=== PATIENT | male | born 1985 | race Caucasian/White ===

== ENCOUNTER 2017-01-21 21:23 | Emergency (ER) | payer SELFPAY ==
[2017-01-21 21:37] VITALS: BP 123/83; BMI 27.7
--- NOTE | 2017-01-21 22:46 | DR.GENAD ---
HPI - PCP Primary Care Physician: DR. Gwen STOVALL - Complaint/Symptoms Chief Complaint Doctors Comments: Patient states that he has been under a lot of stress lately. He has been working a lot and getting ready to start a big job out of the city. He is having marital problems and this has caused much stress. He states that he is healty and denies hisotory of cardiopulmonary disease. Chief Complaint:: CHEST P[AIN STARTING AT STERNUM RADIATING UP TOWARD NECK COMES AND GOES. WHEEZING, DIFFICULTY BREATHING AT NIGHT, VOMITING AND SEEN BLOOD IN IT. DRY HEEVING AT NIGHT Self Treatment fo Chief Complaint: PATIENT TOOK PEPTO BISMAL AND NEXIUM - Source History Provided: Patient - Mode of Arrival Mode of Arrival: Ambulatory - Timing Onset of Chief Complaint: 01/20/17 PMH - PMH Past Medical History: Yes Past Medical History: GERD Past Medical History Comment: HEART MURMUR Past Surgical History: No - Family History History of Family Medical Conditions: Yes Family Medical History Comment: COPD - Social History Does patient currently use any type of tobacco product: Yes Have you used tobacco products in the last 12 months: No Type of Tobacco Use: Cigarettes How many years tobacco product used: 4 Does any household member use tobacco: No Alcohol Use: Rarely Do you use any recreational Drugs:: No Lives With: Alone Lives Where: Home - infectious screening In the last 2 months have you had wt loss of >10#?: YES Have you had fever, night sweats or hemotysis?: Yes Have you traveled outside the country in the last 6 months?: No Isolation: Standard ROS - Review of Systems Constitutional: negative: Diaphoresis Eyes: No Symptoms Reported ENTM: No Symptoms Reported Respiratoy: No Symptoms Reported Cardiovascular: No Symptoms Reported Gastrointestinal/Abdominal: No Symptoms Reported Genitourinary: No Symptoms Reported Neurological: No Symptoms Reported Musculoskeletal: No Symptoms Reported Integumentary: No Symptoms Reported Hematologic/Lymphatic: No Symptoms Reported Endocrine: No Symptoms Reported Psychiatric: No Symptoms Reported All Other Systems: Reviewed and Negative PE - Vital Signs Vitals: Temperature 99.1 F Pulse Rate 72 Respiratory Rate 20 Blood Pressure 123/83 O2 Sat by Pulse Oximetry 95 - General Limitations: No Limitations General Appearance: Alert, In No Apparent Distress - Head Head Exam: Normal Inspection, Atraumatic - Eyes Eye exam: Normal Appearance, PERRL, EOMI - ENT ENT Exam: Normal Exam, Normal Oropharynx External Ear Exam: Normal External Inspection TM/Canal Exam: Bilateral Normal Nose Exam: Normal Nose Exam Mouth Exam: Normal Inspection Throat Exam: Normal Inspection - Neck Neck Exam: Normal Inspection - Chest Chest Inspection: Normal Inspection - Respiratory Respiratory Exam: Bilateral Clear to Auscultation - Cardiovascular Cardiovascular Exam: Regular Rate, Bradycardia - Abdominal Exam Abdominal Exam: Normal Inspection, Normal Bowel Sounds Abdominal Tenderness: negative: RUQ, RLQ, LUQ, LLQ, Epigastrium, Suprapubic, Diffuse, Mild, Moderate, Severe, Other - Extremities Extremities Exam: Normal Inspection, Full ROM - Back Back Exam: Normal Inspection, Full ROM - Neurologic Neurological Exam: Alert, Oriented X3, CN II-XII Intact - Psychiatric Psychiatric Exam: Normal Affect - Skin Skin Exam: Warm, Dry, Intact ROR - Labs Reviewed Result Diagrams: 01/21/17 22:23 01/21/17 22: Laboratory: WBC 7.9 X10^3/uL (3.6-10.0) 01/21/17 22: RBC 4.83 X10^6/uL (4.7-6.0) 01/21/17 22:23 Hgb 14.8 g/dL (13.5-18.0) 01/21/17 22:23 Hct 42.5 % (42.0-54.0) 01/21/17 22:23 MCV 88.0 fL (80.0-100.0) 01/21/17 22:23 MCH 30.6 pg (27.0-34.0) 01/21/17 22: MCHC 34.7 g/dL (33.0-35.0) 01/21/17 22:23 RDW 13.1 % (11.6-16.5) 01/21/17 22:23 Plt Count 182 X10^3/uL (150.0-450.0) 01/21/17 22:23 Plt Count Comment Adequate (ADEQUATE) 01/21/17 22: MPV 9.1 fL (7.4-11.0) 01/21/17 22:23 Neut % 71.2 % (42.0-75.0) 01/21/17 22: Lymph % 19.2 % (21.0-51.0) L 01/21/17 22:23 Alpine % 6.8 % (0.0-13.0) 01/21/17 22:23 Eos % 2.3 % (0.9-2.9) 01/21/17 22:23 Baso % 0.5 % (0.2-1.0) 01/21/17 22:23 Neut # 5.6 x10^3/uL (2.2-4.8) H 01/21/17 22:23 Lymph # 1.5 X10^3/uL (1.3-2.9) 01/21/17 22:23 Alpine # 0.5 x10^3/uL (0.3-0.8) 01/21/17 22:23 Eos # 0.2 x10^3/uL (0.0-0.2) 01/21/17 22:23 Baso # 0.0 X10^3/uL (0.0-0.1) 01/21/17 22:23 Absolute Nucleated RBC 0.1 /100WBC 01/21/17 22:23 Total Counted 100 01/21/17 22:23 Neutrophils % (Manual) 77 % (39-76) H 01/21/17 22:23 Lymphocytes % (Manual) 17 % (13-43) 01/21/17 22:23 Monocytes % (Manual) 4 % (4-9) 01/21/17 22:23 Eosinophils % (Manual) 2 % (0-6) 01/21/17 22:23 Plt Morphology Comment Normal (NORMAL) 01/21/17 22:23 RBC Morphology Normal (NORMAL) 01/21/17 22:23 Polychromasia 01/21/17 22:23 INR Target Range - 01/21/17 22:23 INR 1.02 (0.8-1.3) 01/21/17 22:23 Sodium 141 mmol/L (136-145) 01/21/17 22:23 Corrected Sodium TNP 01/21/17 22:23 Potassium 3.6 mmol/L (3.5-5.1) 01/21/17 22:23 Chloride 106 mmol/L (98-107) 01/21/17 22:23 Carbon Dioxide 25.5 mmol/L (21-32) 01/21/17 22:23 BUN 17 mg/dL (7-18) 01/21/17 22:23 Creatinine 1.06 mg/dL (0.70-1.30) 01/21/17 22:23 Est GFR (MDRD) Af Amer > 60 (>60) 01/21/17 22:23 Est GFR (MDRD) Non-Af > 60 (>60) 01/21/17 22:23 Glucose 98 mg/dL (65-99) 01/21/17 22:23 Calcium 9.4 mg/dL (8.5-10.1) 01/21/17 22:23 Corrected Calcium TNP 01/21/17 22:23 Phosphorus 4.5 mg/dL (2.6-4.7) 01/21/17 22:23 Magnesium 2.1 mg/dL (1.7-2.9) 01/21/17 22:23 Total Bilirubin 0.40 mg/dL (0.2-1.0) 01/21/17 22:23 AST 13 Units/L (15-37) L 01/21/17 22:23 ALT 30 Units/L (12-78) 01/21/17 22:23 Alkaline Phosphatase 57 Units/L (46-116) 01/21/17 22:23 Creatine Kinase 223 Units/L (39-308) 01/21/17 22:23 CK-MB (CK-2) < 1.0 ng/mL (0-4.0) 01/21/17 22:23 CK/CKMB % Calc 0.5 % (<4) 01/21/17 22:23 Troponin I < 0.02 ng/mL (0-1.5) 01/21/17 22:23 Total Protein 7.1 g/dL (6.4-8.2) 01/21/17 22:23 Albumin 3.8 g/dL (3.4-5.0) 01/21/17 22:23 Globulin 3.3 g/dL (2.5-4.5) 01/21/17 22:23 Albumin/Globulin Ratio 1.2 Ratio (1.1-2.1) 01/21/17 22:23 - Diagnosis Discharge Problem: Anxiety - Discharge Plan Condition: Stable - Follow ups/Referrals Follow ups/Referrals: SEBAS STOVALL [Primary Care Provider] - 3 days - Instructions
[2017-01-21] MEDS ORDERED: NS 1000 ML 1,000 ML ONE (22:51)
[2017-01-21 23:00] LABS: CKMB % 0.5 % (<4); CREATINE KINASE 223 Units/L (39-308); CREATINE KINASE MB < 1.0 ng/mL (0-4.0); TROPONIN I < 0.02 ng/mL (0-1.5)
[2017-01-21] MEDS ORDERED: NS 1000 ML 1,000 ML IV SCH (23:00)
--- NOTE | 2017-01-21 23:08 | RAD ---
AP Chest Indication: Chest pain Comparison: None available Findings: The trachea is midline. The cardiac silhouette is unremarkable. The lungs are clear without focal i nfiltrate or effusion. The bony thorax is unremarkable. IMPRESSION: 1. No acute cardiopulmonary abnormality. Reported By:
[2017-01-21 23:09] LABS: MEAN PLATELET VOLUME 9.1 fL (7.4-11.0)
[2017-01-21 23:11] LABS: ALANINE AMINOTRANSFERASE 30 Units/L (12-78); ALBUMIN 3.8 g/dL (3.4-5.0); ALKALINE PHOSPHATASE 57 Units/L (46-116); ASPARTATE AMINO TRANSFERASE 13 Units/L (15-37); BLOOD UREA NITROGEN 17 mg/dL (7-18); CALCIUM 9.4 mg/dL (8.5-10.1); CARBON DIOXIDE 25.5 mmol/L (21-32); CHLORIDE 106 mmol/L (98-107); CREATININE 1.06 mg/dL (0.70-1.30); MAGNESIUM 2.1 mg/dL (1.7-2.9); PHOSPHORUS 4.5 mg/dL (2.6-4.7); SODIUM 141 mmol/L (136-145); TOTAL PROTEIN 7.1 g/dL (6.4-8.2); eGFR BLACK RACES > 60 (>60); eGFR NON BLACK RACES > 60 (>60)
[2017-01-21 23:25] LABS: BASOPHILS % (AUTO) 0.5 % (0.2-1.0); EOSINOPHILS # (AUTO) 0.2 x10^3/uL (0.0-0.2); EOSINOPHILS % (AUTO) 2.3 % (0.9-2.9); HEMATOCRIT 42.5 % (42.0-54.0); HEMOGLOBIN 14.8 g/dL (13.5-18.0); LYMPHOCYTES # (AUTO) 1.5 X10^3/uL (1.3-2.9); LYMPHOCYTES % (AUTO) 19.2 % (21.0-51.0); MEAN CORPUSCULAR HEMOGLOBIN 30.6 pg (27.0-34.0); MEAN CORPUSCULAR HGB CONC 34.7 g/dL (33.0-35.0); MONOCYTES # (AUTO) 0.5 x10^3/uL (0.3-0.8); MONOCYTES % (AUTO) 6.8 % (0.0-13.0); NEUTROPHILS # (AUTO) 5.6 x10^3/uL (2.2-4.8); NEUTROPHILS % (AUTO) 71.2 % (42.0-75.0); PLATELET COUNT 182 X10^3/uL (150.0-450.0); RED BLOOD COUNT 4.83 X10^6/uL (4.7-6.0); RED CELL DISTRIBUTION WIDTH 13.1 % (11.6-16.5); WHITE BLOOD COUNT 7.9 X10^3/uL (3.6-10.0)
[2017-01-21 23:38] LABS: PLATELET MORPHOLOGY COMMENT NORMAL (NORMAL)
[2017-01-21] MEDS ORDERED: ATIVAN INJ 2 MG VIAL IVP ONE (23:38)
[2017-01-21] MEDS ORDERED: ATIVAN INJ 2 MG VIAL ONE (23:45)
== END 2017-01-22 00:15 | disposition home or self-care (01) ==
LOC: ER 21:41
DX: F41.8 Other specified anxiety disorders (principal); R07.89 Other chest pain
CPT/HCPCS: 36415; 71010; 80053; 82550; 82553; 83735; 84100; 84484; 85025; 85610; 93005; 93010; 96365; 96374; 99283; A4222; J2060